=== PATIENT | male | born 1995 | race Caucasian/White ===

== ENCOUNTER 2019-06-30 05:16 | Day surgery (SDC) | payer OTHER ==
[~2019-06-30] VITALS: Ht 182.9 cm; Wt 98.4 kg
[2019-06-30 06:16] VITALS: BP 130/80; Ht 182.9 cm; Wt 98.4 kg
[2019-06-30] MEDS ORDERED: ULTRAM50 MG PO (07:38)
[2019-06-30] MEDS ORDERED: DURICEF500 MG PO (07:38)
--- NOTE | 2019-06-30 09:55 | OP ---
PATIENT NAME: RAMSEY VACA MEDICAL RECORD: [id number] LOCATION:[facility] ADMISSION DATE: SURGEON: EMIR BERNABE DO DATE OF OPERATION: 06/30/2019 PROCEDURE PERFORMED: Right endoscopic carpal tunnel release. PREOPERATIVE DIAGNOSIS: Right carpal tunnel syndrome. POSTOPERATIVE DIAGNOSIS: Right carpal tunnel syndrome. INDICATIONS: Mr. Vaca is a 24-year-old male, who had a nerve conduction study done and it showed severe carpal tunnel. He presented to my office, wanted something to be done surgically. He has been dealing with it for quite some time. He is an inmate. He is tired of dealing with it, waking him up in pain. I told him that we could help with the pain, but due to the severity of the compression on the nerve, I do not know that he would get feeling back and he was at risk for bleeding, infection, damage to the median nerve, continued pain, and other problems including swelling and loss of sensation in his fingers. He was okay with that and signed a consent. SURGEON: Emir Bernabe DO. I was assisted by Danyelle Diaz, certified surgical international first officer. He assisted with retraction and closing. This could not have been performed without him. DESCRIPTION OF PROCEDURE: The patient was taken to the operative suite, laid in supine position, given general anesthetic. The 2 grams of Ancef and LMA was placed. The right upper extremity was then prepped and draped in sterile fashion. A timeout was performed, everyone was in agreement with correct side, site, patient, and procedure. We then exsanguinated the right upper extremity with an Esmarch. Tourniquet was inflated to 250 mmHg, was up for 8 minutes. The incision was then made at the wrist crease on the volar side and with a 15 blade then careful dissection was made down to the carpal tunnel and median nerve with Ragnells bluntly. The forearm fascia was released distal to proximal at that time through the incision and then the dilators were used in the carpal tunnel. Sheaths were then put in. The lights were turned down and camera was put in and the transverse carpal ligament was probed and rasped and then a blade was brought in and transected the transverse carpal ligament opening up nicely. Fat had been herniated down into the carpal tunnel. We then removed all the equipment and lights were turned on and with direct loop magnification, I ensured that there were no bands in the transcarpal ligament connecting as I used scissors in spread technique to ensure there were no bands left. Once that was completed, the site was injected with 10 mL of 0.25% Marcaine with epinephrine. The tourniquet was let down at 8 minutes. The site was then closed with 4-0 Monocryl in an inverted interrupted fashion and Steri-Strip placed on the wound. I then wrapped with Adaptic, 4 x 4's, Kerlix, and Coban lightly on the hand. He was then awakened and taken to recovery in stable condition. BLOOD LOSS: Minimal. COMPLICATIONS: None. TRANSINT:[id number] Voice Confirmation ID: [id number] DOCUMENT ID: [id number] OPERATIVE REPORT [id number] RAMSEY VACA,EMIR Burt DO at 0955 CC: [id number] DICTATION DATE: 06/30/19 07 SPANNER OPERATOR: 06/30/19 0930 [facility] 06/30/19 [facility] [address] [place] [address]
== END 2019-06-30 09:30 ==
LOC: D.OPS 05:16
PROVIDERS: ATTEND Orthopaedic Surgery
DX: G56.01 Carpal tunnel syndrome, right upper limb (principal)